=== PATIENT | male | born 1965 | race Two or more races ===

== ENCOUNTER 2016-07-06 09:06 | Inpatient (IN) | payer OTHER ==
[~2016-07-06] VITALS: Ht 180.3 cm; Wt 151.0 kg
[2016-07-06] VITALS (11 sets, daily range): BP systolic 113–151; BP diastolic 55–93
[2016-07-06] MEDS ORDERED: LOSARTAN POTASS25 MG ORAL (10:06)
[2016-07-06] MEDS ORDERED: Bacitracin 50000 Units Vial ONE ×2 (10:08→10:46)
[2016-07-06] MEDS ORDERED: Propofol 10mg/ml 20ml IV ONE (11:00)
[2016-07-06] MEDS ORDERED: LR 1000ml ONE (11:00)
[2016-07-06] MEDS ORDERED: Sterile Water Irrig 1000ml IRRIG ONE (11:00)
[2016-07-06] MEDS ORDERED: Sterile Water For Irrig 2000ml IRRIG ONE (11:00)
[2016-07-06] MEDS ORDERED: Alfentanil 2ml Inj ONE (11:00)
[2016-07-06] MEDS ORDERED: Lidocaine 1% MPF 10mg/ml 5ml ONE (11:00)
[2016-07-06] MEDS ORDERED: NS Irrig 1000ml ONE (11:00)
[2016-07-06] MEDS ORDERED: Morphine Sulfate PF 10 ML ONE (11:06)
[2016-07-06] MEDS ORDERED: Ropivacaine 5mg/ml Vial 20ml INJ ONE (11:06)
[2016-07-06] MEDS ORDERED: Bupivacaine 0.5% Inj 30 ml vial INJ ONE (11:06)
--- NOTE | 2016-07-06 11:09 | Diagnostic Imaging Report ---
Indication: Pain 3 views of the left knee were obtained. Findings: No acute fracture, malalignment, or joint effusion are identified. There is joint space narrowing with marginal osteophyte formation and subchondral sclerosis. Bones are osteopenic. Impression: No acute injury Osteoarthritis
--- NOTE | 2016-07-06 11:10 | Pre-Procedure Note/Attestation ---
Pre-Procedure Note/Attestation Complete Prior to Procedure Planned Procedure: left Procedure Narrative: left knee raplacement Indications for Procedure Pre-Operative Diagnosis: left knee arthritis Attestation I attest that I discussed the nature of the procedure; its benefits; risks and complications; and alternatives (and the risks and benefits of such alternatives ), prior to the procedure, with the patient (or the patient's legal warehouse representative). I attest that, if there was a reasonable possibility of needing a blood transfusion, the patient (or the patient's legal warehouse representative) was given the [facility] standardized written summary, pursuant to the [place] Blood Safety Act ([place] Health and Safety Code # 1645, as amended). I attest that I re-evaluated the patient just prior to the surgery and that there has been no change in the patient's H&P, except as documented below: GENEVIEVE DESAI July 06, 2016 11:10
--- NOTE | 2016-07-06 11:11 | Brief Operative Note ---
Immediate Post Operative Note Operative Note Pre-op Diagnosis: left knee arthritis Procedure: left knee repal cement Post-op Diagnosis: left knee arthritis Post-op Diagnosis: same as pre-op Findings: consistent w/pre-op dx studies Surgeon: wilson Anesthesia: general Specimen: yes Complications: none Implant(s) used?: Yes GENEVIEVE DESAI July 06, 2016 11:11
[2016-07-06] MEDS ORDERED: Norco 7.5mg/325mg tab ORAL PRN ×2 (11:15→12:15)
[2016-07-06] MEDS ORDERED: LR 1000ml 1,000 ML IVLG SCH (12:03)
[2016-07-06] MEDS ORDERED: Midazolam 2mg/2ml Inj IVP PRN (12:15)
[2016-07-06] MEDS ORDERED: Metoclopramide 10mg/2ml Inj IVP PRN (12:15)
[2016-07-06] MEDS ORDERED: fentaNYL 100 mcg/2 mL IV PRN (12:15)
[2016-07-06] MEDS ORDERED: Ketorolac 30mg Inj IV PRN (12:15)
[2016-07-06] MEDS ORDERED: Meperidine 25mg/0.5ml Inj IV PRN (12:15)
[2016-07-06] MEDS ORDERED: Oxycodone/Acetaminophen 5-325 ORAL PRN (12:15)
[2016-07-06] MEDS ORDERED: Hydromorphone 0.5mg/0.5ml inj IVP PRN (12:15)
[2016-07-06] MEDS ORDERED: Ketorolac 60mg Inj IV PRN (12:15)
[2016-07-06] MEDS ORDERED: Atropine Inj 1mg/10ml Syr IV PRN (12:15)
[2016-07-06] MEDS ORDERED: LORazepam Inj 2mg/ml 1ml IV PRN (12:15)
[2016-07-06] MEDS ORDERED: DiphenhydrAMINE 50mg/ml Inj IVP PRN (12:15)
[2016-07-06] MEDS ORDERED: Norco 5mg/325mg tab ORAL PRN (12:15)
--- NOTE | 2016-07-06 12:24 | Anethesia Preoperative Eval ---
Anesthesia Pre-op PMH/ROS General Date of Evaluation: July 06, 2016 Time of Evaluation: 11:11 Anesthesiologist: Farzana ASA Score: ASA 3 Mallampati Score Class I : Soft palate, uvula, fauces, pillars visible Class II: Soft palate, uvula, fauces visible Class III: Soft palate, base of uvula visible Class IV: Only hard plate visible Mallampati Classification: Class III Surgeon: Bob Diagnosis: L Knee Pain Surgical Procedure: L TKR Anesthesia History: none Family History: no anesthesia problems Allergies: Coded Allergies: No Known Allergies (Unverified , 07/05/16) Medications: see eMAR Past Medical History Cardiovascular: Reports: HTN Gastrointestinal/Genitourinary: Reports: GERD Other: obesity - Morbid BMI 47 PSxH Narrative: Cholecystectomy, L Knee Arthroscopy X 2 Anesthesia Pre-op Phys. Exam Physician Exam Last Vital Signs Date Time Temp Pulse Resp B/P Pulse Ox O2 Delivery O2 Flow Rate FiO2 07/06/16 09:42 97.5 70 20 151/93 97 Room Air Constitutional: NAD Neurologic: CN 2-12 intact Cardiovascular: RRR Respiratory: CTA Gastrointestinal: S/NT/ND Airway Exam Mallampati Score: Class III MO: limited ROM: limited Teeth: intact Anesthesia Pre-op A/P Risk Assessment & Plan Assessment: ASA 3 Plan: GA, BIS, Spinal, L Adductor Block Status Change Before Surgery: No Pre-Antibiotics Dru Grams Ancef IV Given Within 1 Hr of Incision: Yes Time Given: 11:51 Justin Yanes MD July 06, 2016 12:24
[2016-07-06] MEDS ORDERED: Tranexamic Acid 1,000 MG in NS 65 ML IVPB ONE (12:30)
--- NOTE | 2016-07-06 12:30 | Immediate Post-Op Evaluation ---
Immediate Post-Op Evalulation Immediate Post-Op Evalulation Procedure: L TKR Date of Evaluation: July 06, 2016 Time of Evaluation: 14:27 IV Fluids: 1100 Blood Products: 0 Estimated Blood Loss: 40 Urinary Output: 150 Blood Pressure Systolic: 113 Blood Pressure Diastolic: 64 Pulse Rate: 94 Respiratory Rate: 16 O2 Sat by Pulse Oximetry: 98 Temperature (Fahrenheit): 98.9 Pain Score (1-10): 0 Nausea: No Vomiting: No Complications 0 Patient Status: awake, reacts, patent, extubated, none Hydration Status: adequate Dru Grams Ancef IV Given Within 1 Hr of Incision: Yes Time Given: 11:51 Justin Yanes MD July 06, 2016 12:30
--- NOTE | 2016-07-06 12:31 | 48 Hour Post Anesthesia Eval ---
Post Anesthesia Evaluation Procedure: L TKR Date of Evaluation: July 06, 2016 Time of Evaluation: 16:43 Blood Pressure Systolic: 118 0: 71 Pulse Rate: 82 Respiratory Rate: 18 Temperature (Fahrenheit): 98.6 O2 Sat by Pulse Oximetry: 96 Airway: patent Nausea: No Vomiting: No Pain Intensity: 2 Hydration Status: adequate Cardiopulmonary Status: Stable Mental Status/LOC: patient returned to baseline Follow-up Care/Observations: 0 Post-Anesthesia Complications: 0 Follow-up care needed: N/A Justin Yanes MD July 06, 2016 12:31
[2016-07-06 15:21] LABS: MEAN CORPUSCULAR HEMOGLOBIN 30.1 PG (27.0-31.0); MEAN CORPUSCULAR HGB CONC 31.9 G/DL (32.0-36.0); MEAN CORPUSCULAR VOLUME 94 FL (80-99); MEAN PLATELET VOLUME 8.5 FL (6.5-10.1); PLATELET COUNT 186 K/UL (150-450); RED CELL DISTRIBUTION WIDTH 13.5 % (11.6-14.8); WHITE BLOOD COUNT 9.1 K/UL (4.8-10.8)
--- NOTE | 2016-07-06 15:24 | Diagnostic Imaging Report ---
Indication: POST-OP Findings: 2 views of the left knee were obtained postoperatively. The cemented total knee arthroplasty is demonstrated. The alignment and position of the prosthetic is satisfactory. There are no abnormal interface lucencies or evidence of an acute fracture. Surgical skin eulogio are noted. There is a drain in place. There is soft tissue swelling and air indicative of the recent surgery. Impression: Status post cemented left total knee arthroplasty. No radiographic evidence for complications in the immediate postop period.
[2016-07-06 15:38] LABS: INR 1.1 (0.9-1.1); PROTHROMBIN TIME 10.8 SEC (9.30-11.50)
[2016-07-06] MEDS ORDERED: Morphine Sulfate 2mg/ml Inj IVP PRN (16:00)
[2016-07-06] MEDS: D5 1/2NS w/KCl 20mEq 1,000 ML IV SCH (17:36)
[2016-07-06 17:38] LABS: BAND NEUTROPHILS % (MANUAL) 1 % (0-8); EOSINOPHILS % (MANUAL) 1 % (0-3); LYMPHOCYTES % (MANUAL) 9 % (20-45); NEUTROPHILS % (MANUAL) 89 % (45-75); TOTAL CELLS COUNTED 100
[2016-07-06 17:39] LABS: BASOPHILS % (MANUAL) 0 % (0-2); PLATELET ESTIMATE ADEQUATE; PLATELET MORPHOLOGY NORMAL
[2016-07-06] MEDS ORDERED: Morphine Sulfate 4mg/ml Inj SUBQ PRN (19:00)
[2016-07-06] MEDS ORDERED: Morphine Sulfate 2mg/ml Inj SUBQ PRN ×2 (19:00)
[2016-07-06] MEDS: Morphine Sulfate 4mg/ml Inj IVP PRN ×2 (19:18→22:22)
[2016-07-06] MEDS: ceFAZolin sod 1 GM in D5W 55 ML IV SCH (20:22)
--- NOTE | 2016-07-06 22:29 | Operative Note - Dictated ---
FACILITY: [facility]. PREOPERATIVE DIAGNOSES: 1. Left knee end-stage osteoarthritis. 2. Morbid obesity. 3. Flexion contracture of left knee. POSTOPERATIVE DIAGNOSES: 1. Left knee end-stage osteoarthritis. 2. Morbid obesity. 3. Flexion contracture of left knee. PROCEDURE: 1. Left total knee replacement with Saniya Persona knee modifier 22 secondary to difficulty. 2. Posterior flexion contracture release and 3. , modified . 4. Morbid obesity and . SURGEON: Vel Rojas M.D. FILENET P8 DEVELOPER: LILO García. SENIOR ADULTS DIRECTOR: Unknown. PREOPERATIVE NOTE: This is a pleasant gentleman, who has been having significant pain in the knee associated with walking, going downstairs, failed conservative treatment and severely obese. He is cleared by . . I explained to him the surgery and the risks being infection, bleeding, anesthetic risks, neurovascular damage, DVT, PE, failure of the operation, mortality and morbidity from the above causes, not including the above causes. The patient agreed and consents were obtained. OPERATIVE ROOM NOTE: Under the benefit of spinal anesthetic, the patient's knee was prepped and draped in the appropriate manner. Ancef was given preoperatively. A midline incision was made and incised through the subcutaneous tissue and down from medial retinaculum patella . Drilled down the femur on AP and lateral planes, I then proceeded to place it in 3 degrees of external rotation, an anterior cut, posterior cut, and anterior chamfer and posterior chamfer cuts No tourniquet was indicated because of increased risk of Closed the retinaculum with #1 , and skin with eulogio. Vel Rojas M.D. DR: Karen JOB#: [id number] CC:
[2016-07-07 00:30] VITALS: BP 115/67
[2016-07-07] MEDS: Morphine Sulfate 4mg/ml Inj IVP PRN ×4 (03:22→19:57)
[2016-07-07 04:00] VITALS: BP 117/69
[2016-07-07] MEDS: ceFAZolin sod 1 GM in D5W 55 ML IV SCH (04:09)
[2016-07-07] MEDS: D5 1/2NS w/KCl 20mEq 1,000 ML IV SCH ×2 (06:19→19:40)
[2016-07-07 06:50] LABS: BASOPHILS % (AUTO) 0.3 % (0.0-2.0); LYMPHOCYTES % (AUTO) 11.8 % (20.0-45.0); MEAN CORPUSCULAR HEMOGLOBIN 29.9 PG (27.0-31.0); MEAN CORPUSCULAR HGB CONC 32.4 G/DL (32.0-36.0); MEAN CORPUSCULAR VOLUME 92 FL (80-99); MEAN PLATELET VOLUME 8.1 FL (6.5-10.1); MONOCYTES % (AUTO) 7.4 % (1.0-10.0); NEUTROPHILS % (AUTO) 80.4 % (45.0-75.0); PLATELET COUNT 172 K/UL (150-450); RED BLOOD COUNT 4.48 M/UL (4.70-6.10); RED CELL DISTRIBUTION WIDTH 13.4 % (11.6-14.8); WHITE BLOOD COUNT 11.9 K/UL (4.8-10.8)
--- NOTE | 2016-07-07 07:41 | History & Physical ---
History and Physical History & Physicial 5-10 HP reviewed care noted d/w RN orders written ANGELLA VENTURA July 07, 2016 07:41
--- NOTE | 2016-07-07 07:42 | General Progress Note ---
Assessment/Plan Assessment/Plan knee arthritis fatty liver obesity s/p total knee replacement PLAN 1. incentive spirometry 2. Lovenox 3. PT evaluation and therapy 4. Hydration 5. Pain management 6. discharge once stable with outpatient follow up Subjective Allergies: Coded Allergies: No Known Allergies (Unverified , 07/05/16) Subjective post op doing well no distress Objective Last 24 Hour Vital Signs Date Time Temp Pulse Resp B/P Pulse Ox O2 Delivery O2 Flow Rate FiO2 07/07/16 04:00 96.6 75 18 117/69 95 Nasal Cannula 5.0 07/07/16 03:52 97.0 07/07/16 00:30 97.0 80 19 115/67 95 Nasal Cannula 5.0 07/06/16 20:00 98.1 69 18 117/60 100 Nasal Cannula 2.0 07/06/16 19:48 96.0 07/06/16 16:30 96.0 80 19 117/69 93 Nasal Cannula 5.0 07/06/16 16:00 96.0 80 19 117/69 93 Room Air 07/06/16 15:15 98.6 81 19 121/82 96 Nasal Cannula 3.0 07/06/16 15:00 80 18 123/81 95 Nasal Cannula 3.0 07/06/16 14:45 81 21 114/69 96 Nasal Cannula 3.0 07/06/16 14:30 82 20 124/62 98 Nasal Cannula 3.0 07/06/16 14:25 85 21 118/62 95 Simple Mask 6.0 07/06/16 14:20 86 18 114/55 96 Simple Mask 6.0 07/06/16 14:18 82 18 96 07/06/16 14:17 94 16 98 07/06/16 14:16 98.9 91 23 113/64 96 Simple Mask 6.0 07/06/16 09:42 97.5 70 20 151/93 97 Room Air Intake and Output 07/06/16 07/07/16 19:00 07:00 Intake Total 1650 ml 3570 ml Output Total 1100 ml 1490 ml Balance 550 ml 2080 ml Intake Oral 250 ml 2640 ml IV Total 1400 ml 930 ml Output Urine Total 1050 ml 1200 ml Drainage Total 50 ml 290 ml # Voids 1 Laboratory Tests 07/06/16 15:10: White Blood Count 9.1, Red Blood Count 5.10, Hemoglobin 15.4, Hematocrit 48.2, Mean Corpuscular Volume 94, Mean Corpuscular Hemoglobin 30.1, Mean Corpuscular Hemoglobin Concent 31.9L, Red Cell Distribution Width 13.5, Platelet Count 186, Mean Platelet Volume 8.5, Neutrophils (%) (Auto) , Lymphocytes (%) (Auto) , Monocytes (%) (Auto) , Eosinophils (%) (Auto) , Basophils (%) (Auto) , Differential Total Cells Counted 100, Neutrophils % (Manual) 89H, Lymphocytes % (Manual) 9L, Monocytes % (Manual) 0L, Eosinophils % (Manual) 1, Basophils % ( Manual) 0, Band Neutrophils 1, Platelet Estimate Adequate, Platelet Morphology Normal, Prothrombin Time 10.8, Prothromb Time International Ratio 1.1 07/07/16 06:25: White Blood Count 11.9H, Red Blood Count 4.48L, Hemoglobin 13.4L, Hematocrit 41.3L, Mean Corpuscular Volume 92, Mean Corpuscular Hemoglobin 29.9, Mean Corpuscular Hemoglobin Concent 32.4, Red Cell Distribution Width 13.4, Platelet Count 172, Mean Platelet Volume 8.1, Neutrophils (%) (Auto) 80.4H, Lymphocytes ( %) (Auto) 11.8L, Monocytes (%) (Auto) 7.4, Eosinophils (%) (Auto) 0.0, Basophils (%) (Auto) 0.3, Prothrombin Time [Pending], Prothromb Time International Ratio [Pending] Height (Feet): 5 Height (Inches): 11.00 Weight (Pounds): 333 Objective WDWN NAD clear breath sounds bilaterally without rhonchi or wheeze [id number] without MRG NABS nontender no HSM no CCE nonfocal obese ANGELLA VENTURA July 07, 2016 07:42
[2016-07-07 07:45] LABS: INR 1.1 (0.9-1.1); PROTHROMBIN TIME 10.7 SEC (9.30-11.50)
[2016-07-07 08:00] VITALS: BP 123/71
[2016-07-07] MEDS: Morphine Sulfate 2mg/ml Inj IVP PRN (08:06)
[2016-07-07] MEDS: Losartan 25mg tab ORAL SCH (08:21)
[2016-07-07] MEDS: Enoxaparin 40mg Inj SUBQ SCH (08:26)
--- NOTE | 2016-07-07 09:40 | Consultation ---
History of Present Illness General Date patient seen: July 07, 2016 Present Illness Allergies: Coded Allergies: No Known Allergies (Unverified , 07/05/16) Medication History Scheduled Losartan Potassium* (Losartan Potassium*), 25 MG ORAL DAILY, (Reported) Patient History Healthcare decision maker N Resuscitation status Full Code Advanced Directive on File No Physical Exam Last 24 Hour Vital Signs Date Time Temp Pulse Resp B/P Pulse Ox O2 Delivery O2 Flow Rate FiO2 07/07/16 08:36 96.6 07/07/16 08:21 123/71 07/07/16 08:00 97.7 74 20 123/71 96 Nasal Cannula 5.0 07/07/16 04:00 96.6 75 18 117/69 95 Nasal Cannula 5.0 07/07/16 03:52 97.0 07/07/16 00:30 97.0 80 19 115/67 95 Nasal Cannula 5.0 07/06/16 20:00 98.1 69 18 117/60 100 Nasal Cannula 2.0 07/06/16 19:48 96.0 07/06/16 16:30 96.0 80 19 117/69 93 Nasal Cannula 5.0 07/06/16 16:00 96.0 80 19 117/69 93 Room Air 07/06/16 15:15 98.6 81 19 121/82 96 Nasal Cannula 3.0 07/06/16 15:00 80 18 123/81 95 Nasal Cannula 3.0 07/06/16 14:45 81 21 114/69 96 Nasal Cannula 3.0 07/06/16 14:30 82 20 124/62 98 Nasal Cannula 3.0 07/06/16 14:25 85 21 118/62 95 Simple Mask 6.0 07/06/16 14:20 86 18 114/55 96 Simple Mask 6.0 07/06/16 14:18 82 18 96 07/06/16 14:17 94 16 98 07/06/16 14:16 98.9 91 23 113/64 96 Simple Mask 6.0 07/06/16 09:42 97.5 70 20 151/93 97 Room Air Intake and Output 07/06/16 07/07/16 19:00 07:00 Intake Total 1650 ml 3570 ml Output Total 1100 ml 1490 ml Balance 550 ml 2080 ml Intake Oral 250 ml 2640 ml IV Total 1400 ml 930 ml Output Urine Total 1050 ml 1200 ml Drainage Total 50 ml 290 ml # Voids 1 Laboratory Tests Test 07/06/16 15:10 07/07/16 06:25 White Blood Count 9.1 K/UL (4.8-10.8) 11.9 K/UL (4.8-10.8) H Red Blood Count 5.10 M/UL (4.70-6.10) 4.48 M/UL (4.70-6.10) L Hemoglobin 15.4 G/DL (14.2-18.0) 13.4 G/DL (14.2-18.0) L Hematocrit 48.2 % (42.0-52.0) 41.3 % (42.0-52.0) L Mean Corpuscular Volume 94 FL (80-99) 92 FL (80-99) Mean Corpuscular Hemoglobin 30.1 PG (27.0-31.0) 29.9 PG (27.0-31.0) Mean Corpuscular Hemoglobin Concent 31.9 G/DL (32.0-36.0) L 32.4 G/DL (32.0-36.0) Red Cell Distribution Width 13.5 % (11.6-14.8) 13.4 % (11.6-14.8) Platelet Count 186 K/UL (150-450) 172 K/UL (150-450) Mean Platelet Volume 8.5 FL (6.5-10.1) 8.1 FL (6.5-10.1) Neutrophils (%) (Auto) % (45.0-75.0) 80.4 % (45.0-75.0) H Lymphocytes (%) (Auto) % (20.0-45.0) 11.8 % (20.0-45.0) L Monocytes (%) (Auto) % (1.0-10.0) 7.4 % (1.0-10.0) Eosinophils (%) (Auto) % (0.0-3.0) 0.0 % (0.0-3.0) Basophils (%) (Auto) % (0.0-2.0) 0.3 % (0.0-2.0) Differential Total Cells Counted 100 Neutrophils % (Manual) 89 % (45-75) H Lymphocytes % (Manual) 9 % (20-45) L Monocytes % (Manual) 0 % (1-10) L Eosinophils % (Manual) 1 % (0-3) Basophils % (Manual) 0 % (0-2) Band Neutrophils 1 % (0-8) Platelet Estimate Adequate Platelet Morphology Normal Prothrombin Time 10.8 SEC (9.30-11.50) 10.7 SEC (9.30-11.50) Prothromb Time International Ratio 1.1 (0.9-1.1) 1.1 (0.9-1.1) Height (Feet): 5 Height (Inches): 11.00 Weight (Pounds): 333 Medications Current Medications Medications (Trade) Dose Ordered Sig/Duncan Route PRN Reason Start Time Stop Time Status Last Admin Dose Admin Dextrose/ Electrolytes (D5 0.45%NS W/ KCl 20mEq) 1,000 ml @ 75 mls/hr [id number] IV 07/06/16 17:00 08/05/16 16:59 07/07/16 06:19 Enoxaparin Sodium (Lovenox) 40 mg DAILY SUBQ 07/07/16 09:00 07/21/16 08:59 07/07/16 08:26 Losartan Potassium (Cozaar) 25 mg DAILY ORAL 07/07/16 09:00 08/06/16 08:59 07/07/16 08:21 Morphine Sulfate (Morphine Sulfate) 1 mg Q4H PRN IVP Mild Pain (Pain Scale 1-3) 07/06/16 16:00 07/13/16 15:59 Morphine Sulfate (Morphine Sulfate) 1 mg Q4H PRN SUBQ Mild Pain (Pain Scale 1-3) 07/06/16 19:00 07/13/16 18:59 Morphine Sulfate (Morphine Sulfate) 2 mg Q4H PRN IVP Moderate Pain (Pain Scale 4-6) 07/06/16 16:00 07/13/16 15:59 07/07/16 08:06 Morphine Sulfate (Morphine Sulfate) 2 mg Q4H PRN SUBQ Moderate Pain (Pain Scale 4-6) 07/06/16 19:00 07/13/16 18:59 Morphine Sulfate (Morphine Sulfate) 4 mg Q4H PRN IVP Severe Pain (Pain Scale 7-10) 07/06/16 16:00 07/13/16 15:59 07/07/16 03:22 Morphine Sulfate (Morphine Sulfate) 4 mg Q4H PRN SUBQ Severe Pain (Pain Scale 7-10) 07/06/16 19:00 07/13/16 18:59 07/06/16 19:18 Assessment/Plan Assessment/Plan (1) Left Knee Osteoarthritis (2) Left Knee pain (3) Status post Left total knee replacement (4) Morbid Obesity Seen dictated ADA HOPPER July 07, 2016 09:40
[2016-07-07 12:00] VITALS: BP 120/65
[2016-07-07] MEDS: Norco 10mg/325mg tab ORAL PRN ×2 (12:33→20:46)
[2016-07-07 16:00] VITALS: BP 124/76
[2016-07-07 20:00] VITALS: BP 127/73
--- NOTE | 2016-07-07 20:38 | Consultation ---
DATE OF CONSULTATION: 07/07/2016 CONSULTING PHYSICIAN: Omar Melgar M.D. PHYSICIAN CYCLE REPAIRER: Ed Aggarwal ATTENDING PHYSICIAN: Vel Rojas M.D. REFERRING PHYSICIAN: Vel Rojas M.D. CHIEF COMPLAINT: Left knee pain. HISTORY OF PRESENT ILLNESS: This is a 51-year-old male, who is being seen for initial comprehensive pain management. The patient is here in the medical/surgical floor of [facility]. The patient is reporting that he has been having left knee pain for the past 12 years. It is a constant chronic pain, rating 8/10, describing it as sharp and stabbing pain, increasing with walking and standing and decreased with rest. At this time, the patient is status post total knee replacement with Dr. Rojas, which was done on 07/06/2012. He is sitting on a chair and in no acute distress. He is reporting that the morphine 1 mg, 2 mg, and 4 mg IV every four hours as needed for [id number] and severe pain has been helping to tolerate his pain. The patient is doing physical therapy to the best of his abilities and he is comfortable at this time. His is at the bedside. We were consulted so that the patient would have adequate pain control while here in the hospital for fast recovery. I discussed the patient about transitioning over from the IV to tablets and he will try over the next day. He used the [place] for his pain. PAST MEDICAL HISTORY: Morbid obesity and hypertension. PAST SURGICAL HISTORY: Gallbladder removal and arthroscopy. ALLERGIES: No known drug allergies. MEDICATIONS: Losartan and ibuprofen. SOCIAL HISTORY: He denies smoking tobacco, drinking alcohol, or IV drug abuse. REVIEW OF SYSTEMS: He denies rash, fever, chills, sweating, dizziness, drowsiness, blurred vision, sore throat, or change in weight. No shortness of breath or chest pain. No nausea, vomiting, diarrhea, or blood in the stool or urine. No bowel or bladder incontinence. No dysuria. He is complaining of left knee pain. PHYSICAL EXAMINATION: GENERAL: He is alert, awake, and oriented x3. VITAL SIGNS: Blood pressure is 123/71, heart rate 74, oxygen saturation 96%, respirations 20, and temperature 97.0 degrees Fahrenheit. Height is 5 feet and 11 inches and weight is 133 pounds. HEENT: PERRLA. NECK: Range of motion is full in all directions. No tenderness. No adenopathy. LUNGS: Clear. HEART: Regular. ABDOMEN: Obese. BACK: Range of motion is decreased in flexion and extension with tenderness to paraspinal muscles. No tenderness to trapezius or rhomboid muscles. EXTREMITIES: Upper extremities, range of motion is full in all directions. Motor is intact. No cyanosis. No clubbing. No edema. Sensory is intact. Reflexes are not obtainable. No adenopathy. Lower extremities, range of motion is decreased due to the patient's condition with bandages and brace noted on the left knee. Tenderness to palpation. No cyanosis. No clubbing. Sensory is intact. Reflexes are unobtainable. No adenopathy. ASSESSMENT AND PLAN: This is a 51-year-old male with left knee osteoarthritis and left knee pain, status post left total knee replacement and morbid obesity. The patient will be continued on the morphine 1 mg, 2 mg, and 4 mg IV every four hours as needed for [id number] and severe pain. We started the patient on [place] 10/325 mg one tablet every four hours as needed for severe breakthrough pain, so he will be able to transition over from the intravenous to the tablets. At this time, the patient was discussed with Dr. Melgar and Dr. Melgar concurred. We will follow up with the patient. Thank you very much for the courtesy of this consultation. Omar Melgar M.D. JENY Aggarwal DR: June JOB#: [id number] CC:
[2016-07-08] MEDS: Morphine Sulfate 4mg/ml Inj IVP PRN ×2 (00:11→04:47)
[2016-07-08] MEDS: D5 1/2NS w/KCl 20mEq 1,000 ML IV SCH (00:24)
[2016-07-08 00:28] VITALS: BP 131/76
[2016-07-08 04:00] VITALS: BP 141/84
[2016-07-08 04:51] LABS: BASOPHILS % (AUTO) 0.7 % (0.0-2.0); EOSINOPHILS % (AUTO) 0.3 % (0.0-3.0); LYMPHOCYTES % (AUTO) 21.6 % (20.0-45.0); MEAN CORPUSCULAR HEMOGLOBIN 31.1 PG (27.0-31.0); MEAN CORPUSCULAR HGB CONC 34.1 G/DL (32.0-36.0); MEAN CORPUSCULAR VOLUME 91 FL (80-99); MEAN PLATELET VOLUME 8.8 FL (6.5-10.1); MONOCYTES % (AUTO) 8.8 % (1.0-10.0); NEUTROPHILS % (AUTO) 68.6 % (45.0-75.0); PLATELET COUNT 155 K/UL (150-450); RED BLOOD COUNT 4.19 M/UL (4.70-6.10); RED CELL DISTRIBUTION WIDTH 13.3 % (11.6-14.8)
[2016-07-08 05:04] LABS: INR 1.1 (0.9-1.1); PROTHROMBIN TIME 10.7 SEC (9.30-11.50)
[2016-07-08] MEDS: Norco 10mg/325mg tab ORAL PRN ×3 (07:48→18:40)
[2016-07-08 08:00] VITALS: BP 143/79
[2016-07-08] MEDS: Losartan 25mg tab ORAL SCH (08:38)
[2016-07-08] MEDS: Enoxaparin 40mg Inj SUBQ SCH (08:41)
--- NOTE | 2016-07-08 09:10 | General Progress Note ---
Assessment/Plan Assessment/Plan (1) Left Knee Osteoarthritis (2) Left Knee pain (3) Status post Left total knee replacement (4) Morbid Obesity Patient will be continued on the [place] and Morphine A Rx for [place] 10/325mg PO 1 TAB Q4-6H PRN 45 tabs in anticipation for discharge. Pt was d/w Dr. Melgar and he concurred. Subjective Date patient seen: July 08, 2016 Time patient seen: 08:15 - am Allergies: Coded Allergies: No Known Allergies (Unverified , 07/05/16) Subjective REVIEW OF SYSTEMS: He denies rash, fever, chills, sweating, dizziness, drowsiness, blurred vision, sore throat, or change in weight. No shortness of breath or chest pain. No nausea, vomiting, diarrhea, or blood in the stool or urine. No bowel or bladder incontinence. No dysuria. He is complaining of left knee pain. SUBJECTIVE: Patient is laying in bed brace and and ice applied to knee. He explains that his pain is a 9/10 and reduced to a 4/10 on the [place]. Patient continues to do PT to the best of his abilities. Objective Last 24 Hour Vital Signs Date Time Temp Pulse Resp B/P Pulse Ox O2 Delivery O2 Flow Rate FiO2 07/08/16 08:38 143/79 07/08/16 05:17 97.5 07/08/16 04:00 98.1 75 19 141/84 95 Room Air 07/08/16 00:28 97.5 79 20 131/76 93 Room Air 07/07/16 21:45 97.7 07/07/16 20:00 97.5 80 20 127/73 96 Room Air 07/07/16 16:00 97.7 75 19 124/76 94 Room Air 07/07/16 12:00 97.9 68 18 120/65 93 Room Air Intake and Output 07/07/16 07/08/16 19:00 07:00 Intake Total 1670 ml 1700 ml Output Total 975 ml 1195 ml Balance 695 ml 505 ml Intake Oral 1070 ml 800 ml IV Total 600 ml 900 ml Output Urine Total 825 ml 1150 ml Drainage Total 150 ml 45 ml # Voids 2 Laboratory Tests 07/08/16 04:00: White Blood Count 11.0H, Red Blood Count 4.19L, Hemoglobin 13.0L, Hematocrit 38.2L, Mean Corpuscular Volume 91, Mean Corpuscular Hemoglobin 31.1H, Mean Corpuscular Hemoglobin Concent 34.1, Red Cell Distribution Width 13.3, Platelet Count 155, Mean Platelet Volume 8.8, Neutrophils (%) (Auto) 68.6, Lymphocytes (% ) (Auto) 21.6, Monocytes (%) (Auto) 8.8, Eosinophils (%) (Auto) 0.3, Basophils ( %) (Auto) 0.7, Prothrombin Time 10.7, Prothromb Time International Ratio 1.1 Height (Feet): 5 Height (Inches): 11.00 Weight (Pounds): 333 Objective GENERAL: He is alert, awake, and oriented x3. HEENT: PERRLA. NECK: Range of motion is full in all directions. No tenderness. No adenopathy. LUNGS: Clear. HEART: Regular. ABDOMEN: Obese. BACK: Range of motion is decreased in flexion and extension with tenderness to paraspinal muscles. No tenderness to trapezius or rhomboid muscles. EXTREMITIES: Bandages and brace noted on the left knee. Tenderness to palpation. NEURO: No changes. ADA HOPPER July 08, 2016 09:10
[2016-07-08 12:00] VITALS: BP 128/78
--- NOTE | 2016-07-08 12:28 | General Progress Note ---
Assessment/Plan Assessment/Plan knee arthritis fatty liver obesity s/p total knee replacement PLAN 1. incentive spirometry 2. Lovenox 3. PT evaluation and therapy 4. Hydration 5. Pain management 6. discharge once stable with outpatient follow up possibly in am Subjective Allergies: Coded Allergies: No Known Allergies (Unverified , 07/05/16) Subjective post op doing well no distress still has pain Objective Last 24 Hour Vital Signs Date Time Temp Pulse Resp B/P Pulse Ox O2 Delivery O2 Flow Rate FiO2 07/08/16 08:41 97.5 07/08/16 08:38 143/79 07/08/16 08:00 97.9 78 20 143/79 95 Room Air 07/08/16 05:17 97.5 07/08/16 04:00 98.1 75 19 141/84 95 Room Air 07/08/16 00:28 97.5 79 20 131/76 93 Room Air 07/07/16 20:00 97.5 80 20 127/73 96 Room Air 07/07/16 16:00 97.7 75 19 124/76 94 Room Air Intake and Output 07/07/16 07/08/16 19:00 07:00 Intake Total 1670 ml 1700 ml Output Total 975 ml 1195 ml Balance 695 ml 505 ml Intake Oral 1070 ml 800 ml IV Total 600 ml 900 ml Output Urine Total 825 ml 1150 ml Drainage Total 150 ml 45 ml # Voids 2 Laboratory Tests 07/08/16 04:00: White Blood Count 11.0H, Red Blood Count 4.19L, Hemoglobin 13.0L, Hematocrit 38.2L, Mean Corpuscular Volume 91, Mean Corpuscular Hemoglobin 31.1H, Mean Corpuscular Hemoglobin Concent 34.1, Red Cell Distribution Width 13.3, Platelet Count 155, Mean Platelet Volume 8.8, Neutrophils (%) (Auto) 68.6, Lymphocytes (% ) (Auto) 21.6, Monocytes (%) (Auto) 8.8, Eosinophils (%) (Auto) 0.3, Basophils ( %) (Auto) 0.7, Prothrombin Time 10.7, Prothromb Time International Ratio 1.1 Height (Feet): 5 Height (Inches): 11.00 Weight (Pounds): 333 Objective WDWN NAD clear breath sounds bilaterally without rhonchi or wheeze [id number] without MRG NABS nontender no HSM no CCE nonfocal obese ANGELLA VENTURA July 08, 2016 12:28
[2016-07-08 16:00] VITALS: BP 127/70
[2016-07-08 20:40] VITALS: BP 132/75
[2016-07-09 00:15] VITALS: BP 131/75
[2016-07-09] MEDS: Norco 10mg/325mg tab ORAL PRN ×3 (00:27→11:29)
[2016-07-09 04:00] VITALS: BP 121/85
[2016-07-09 08:51] LABS: BASOPHILS % (AUTO) 0.7 % (0.0-2.0); EOSINOPHILS % (AUTO) 0.9 % (0.0-3.0); LYMPHOCYTES % (AUTO) 24.4 % (20.0-45.0); MEAN CORPUSCULAR HEMOGLOBIN 30.4 PG (27.0-31.0); MEAN CORPUSCULAR HGB CONC 33.3 G/DL (32.0-36.0); MEAN CORPUSCULAR VOLUME 91 FL (80-99); MONOCYTES % (AUTO) 6.5 % (1.0-10.0); NEUTROPHILS % (AUTO) 67.6 % (45.0-75.0); PLATELET COUNT 175 K/UL (150-450); RED BLOOD COUNT 4.43 M/UL (4.70-6.10); RED CELL DISTRIBUTION WIDTH 12.8 % (11.6-14.8); WHITE BLOOD COUNT 9.9 K/UL (4.8-10.8)
[2016-07-09 08:59] VITALS: BP 130/76
[2016-07-09 09:19] LABS: INR 1.1 (0.9-1.1); PROTHROMBIN TIME 10.7 SEC (9.30-11.50)
[2016-07-09] MEDS: Losartan 25mg tab ORAL SCH (10:40)
[2016-07-09] MEDS: Enoxaparin 40mg Inj SUBQ SCH (10:44)
[2016-07-09] MEDS: Morphine Sulfate 2mg/ml Inj IVP PRN ×2 (11:22→11:23)
--- NOTE | 2016-07-09 11:53 | General Progress Note ---
Assessment/Plan Assessment/Plan knee arthritis fatty liver obesity s/p total knee replacement PLAN 1. [place] for pain 2. Xarelto for 10 days 3. PT evaluation and therapy after dc 4. DME to arrange 5. Pain management 6. discharge today if ok with dr Menjivar Subjective Allergies: Coded Allergies: No Known Allergies (Unverified , 07/05/16) Subjective post op doing well no distress drain out wants to go home Objective Last 24 Hour Vital Signs Date Time Temp Pulse Resp B/P Pulse Ox O2 Delivery O2 Flow Rate FiO2 07/09/16 10:40 130/76 07/09/16 08:59 99.0 79 20 130/76 94 Room Air 07/09/16 04:00 97.7 74 16 121/85 98 Room Air 07/09/16 00:15 98.1 76 18 131/75 95 Room Air 07/08/16 20:40 98.1 78 19 132/75 95 Room Air 07/08/16 19:39 98.2 07/08/16 16:00 98.2 83 18 127/70 98 Room Air 07/08/16 12:00 98.2 72 18 128/78 98 Room Air Intake and Output 07/08/16 07/09/16 19:00 07:00 Intake Total 960 ml Output Total 800 ml 1 ml Balance 160 ml -1 ml Intake Oral 960 ml Output Urine Total 800 ml Drainage Total 1 ml # Voids 3 # Bowel Movements 1 Laboratory Tests 07/09/16 08:25: White Blood Count 9.9, Red Blood Count 4.43L, Hemoglobin 13.5L, Hematocrit 40.5L , Mean Corpuscular Volume 91, Mean Corpuscular Hemoglobin 30.4, Mean Corpuscular Hemoglobin Concent 33.3, Red Cell Distribution Width 12.8, Platelet Count 175, Mean Platelet Volume 9.0, Neutrophils (%) (Auto) 67.6, Lymphocytes (% ) (Auto) 24.4, Monocytes (%) (Auto) 6.5, Eosinophils (%) (Auto) 0.9, Basophils ( %) (Auto) 0.7, Prothrombin Time 10.7, Prothromb Time International Ratio 1.1 Height (Feet): 5 Height (Inches): 11.00 Weight (Pounds): 333 Objective WDWN NAD clear breath sounds bilaterally without rhonchi or wheeze [id number] without MRG NABS nontender no HSM no CCE nonfocal obese ANGELLA VENTURA July 09, 2016 11:53
[2016-07-09 12:00] VITALS: BP 138/83
[2016-07-09] MEDS ORDERED: NORCO 10-325 T1 EACH ORAL ×2 (15:45)
[2016-07-09] MEDS ORDERED: XARELTO10 MG ORAL (15:46)
[2016-07-09] MEDS ORDERED: Tubing IV Secondary IV ONE (16:25)
--- NOTE | 2016-07-11 14:20 | Discharge Summary ---
Discharge Summary Hospital Course Date of Admission July 06, 2016 at 09:06 Date of Discharge July 09, 2016 at 16:26 Admitting Diagnosis DILLON Gonzalez is a 51 year old male who was admitted on July 06, 2016 at 09:06 for Lt Knee Medial Arthritis Consultations dr Rivera IM Procedures s/p 07/06/[address] Vel Rojas, 1. Left total knee replacement with Saniya Persona knee modifier 22 secondary to difficulty. 2. Posterior flexion contracture release Hospital Course s/p surgery course of recovery uneventful pain management with oral analgesics, controlled continue anticoagulation with Xarelto PT eval and Rx, able to ambulate CM to arrange DME incision clean, intact tolerated diet voided freely had BM surgery cleared for discharge discharge today DISCHARGE DIAGNOSIS Left knee end-stage osteoarthritis. Flexion contracture of left knee s/p s/p total knee replacement s/p posterior flexion contracture release left knee Morbid obesity. fatty liver Discharge Medications Continued Medications: Hydrocodone Bit/Acetaminophen 10-325* ([place] 10-325*) 1 Each Tablet 1 TAB ORAL Q4H PRN for For Pain, #45 TAB 0 Refills PRN PAIN Hydrocodone Bit/Acetaminophen 10-325* ([place] 10-325*) 1 Each Tablet 1 TAB ORAL Q6H PRN for For Pain, #45 TAB 0 Refills PRN PAIN Losartan Potassium* (Losartan Potassium*) 25 Mg Tablet 25 MG ORAL DAILY, TAB Rivaroxaban (Xarelto*) 10 Mg Tablet 10 MG ORAL DAILY, #10 TAB 0 Refills Discharge Condition Upon Discharge: stable Discharge Disposition Patient was discharged to Home () Discharge Diagnoses: Ghanshyam (Randy),Melida GALLOWAY July 11, 2016 14:19
== END 2016-07-09 16:26 | disposition home or self-care (01) | DRG 470 ==
LOC: SDSOVERFLO 09:06 → 3E 15:51
PROC: 0SRD0J9 Replacement of Left Knee Joint with Synthetic Substitute, Cemented, Open Approach (ICD-10-PCS; principal; 2016-07-06 11:00)
DX: M17.12 Unilateral primary osteoarthritis, left knee (principal); Z68.42 Body mass index [BMI] 45.0-49.9, adult; I10 Essential (primary) hypertension; E66.01 Morbid (severe) obesity due to excess calories; M24.562 Contracture, left knee; Z87.891 Personal history of nicotine dependence
CPT/HCPCS: 36415; 85007; 85025; 85610; 86850; 86870; 86900; 86901; 86920; 87081; 94003; 94150; J3490